=== PATIENT | male | born 1965 | race Caucasian/White ===

== ENCOUNTER 2017-04-25 23:19 | Inpatient (IN) | payer MEDICAID ==
[~2017-04-25] VITALS: Ht 180.3 cm; Wt 74.8 kg
[2017-04-26] VITALS (24 sets, daily range): BP systolic 121–165; BP diastolic 64–108; Ht 180.3 cm; Wt 74.8 kg
[2017-04-26 00:52] LABS: BASOPHILS 0.1 % (0-2); EOSINOPHILS 0 % (0-7); HEMATOCRIT 36.8 % (42.0-54.0); HEMOGLOBIN 12.8 g/dL (13.5-17.5); IMMATURE GRANULOCYTES 0.5 % (0-5); LYMPHOCYTES 4.5 % (15-50); MCH 31.7 pg (26.0-34.0); MCHC 34.8 g/dL (31.0-37.0); MCV 91.1 fL (80.0-100.0); MEAN PLATELET VOLUME 9.5 fL (7.4-10.4); MONOCYTES 7.2 % (2-11); NEUTROPHILS 87.7 % (40-80); PLATELET COUNT 75 10x3/uL (130-400); RBC 4.04 10x6/uL (4.20-6.10); RDW 12.6 % (11.5-14.5); WBC 16.8 10x3/uL (4.8-10.8)
[2017-04-26 00:55] LABS: APTT 22.7 SECONDS (22.8-39.4); INR 1.27 (0.85-1.17); PROTIME 15.8 SECONDS (11.6-15.0)
[2017-04-26 00:58] LABS: ALBUMIN 4.1 g/dL (3.4-5.0); ALKALINE PHOSPHATASE 98 U/L (46-116); ALT (SGPT) 91 U/L (10-68); BILIRUBIN - TOTAL 1.24 mg/dL (0.2-1.3); CALC OSMOLALITY 262 mosm/kg (275-300); CALCIUM 8.4 mg/dL (8.5-10.1); CARBON DIOXIDE 20.1 mmol/L (21.0-32.0); CHLORIDE - SERUM 89 mmol/L (98-107); CREATININE - SERUM 1.3 mg/dL (0.6-1.3); GLUCOSE 171 mg/dL (74-106); POTASSIUM - SERUM 4.7 mmol/L (3.5-5.1); PROTEIN - SERUM 8.5 g/dL (6.4-8.2); SODIUM 129 mmol/L (136-145); UREA NITROGEN 13 mg/dL (7-18); eGFR NON AFRICAN AMERICAN 61 mL/min (90-120)
[2017-04-26 01:17] LABS: PLATELET ESTIMATE DECREASED
[2017-04-26 01:21] LABS: CREATINE KINASE 495 UL (21-232); MAGNESIUM - SERUM 2.4 mg/dL (1.8-2.4)
[2017-04-26 01:22] LABS: CKMB 6.1 U/L (0.0-3.6)
[2017-04-26 01:37] LABS: APPEARANCE HAZY (CLEAR); BILIRUBIN NEGATIVE (NEGATIVE); COLOR YELLOW (YELLOW); GLUCOSE NEGATIVE (NEGATIVE); KETONE MODERATE mg/dL (NEGATIVE); LEUKOCYTE ESTERASE NEGATIVE (NEGATIVE); NITRITE NEGATIVE (NEGATIVE); PROTEIN 2+ mg/dL (NEGATIVE); SPECIFIC GRAVITY 1.025 (1.005-1.020); UROBILINOGEN NORMAL (NORMAL)
[2017-04-26 01:38] LABS: BACTERIA FEW /hpf (NONE SEEN); EPITHELIAL CELLS 0-5 /hpf (0-5); RED CELLS - URINE 0-5 /hpf (0-5); WHITE CELLS - URINE 0-5 /hpf (0-5)
[2017-04-26 01:39] LABS: SPERMATOZOA PRESENT /hpf (NONE SEEN)
--- NOTE | 2017-04-26 03:50 | NUR ---
REC'D TO ROOM 2301 VIA STRETCHER FROM ER. SEE PHARMACY TECHNICIAN INPATIENT HX AND ASSESSMENT. PT ANSWERING MOST QUESTIONS APPROP, SOME CONFUSION. ORIENTED TO UNIT, ICU MONITORS ON. ALARMS ON AND C/L IN REACH.
--- NOTE | 2017-04-26 04:50 | NUR ---
BELONGINGS FORM SIGNED BY PT - AGREES NO MONEY IN [place]ALLET - REFUSES TO SEND TO LOCK UP - BELONGINGS BAG IN ROOM.
[2017-04-26 05:18] LABS: UDS - AMPHET NEGATIVE QUAL (NEGATIVE); UDS - BARB NEGATIVE QUAL (NEGATIVE); UDS - BENZO NEGATIVE QUAL (NEGATIVE); UDS - COCAINE NEGATIVE QUAL (NEGATIVE); UDS - METH NEGATIVE QUAL (NEGATIVE); UDS - OPIATE NEGATIVE QUAL (NEGATIVE); UDS - PCP NEGATIVE QUAL (NEGATIVE); UDS - THC NEGATIVE QUAL (NEGATIVE)
--- NOTE | 2017-04-26 06:00 | NUR ---
PT C/O NAUSEA AND "SORENESS ALL OVER". NO CHANGE IN TEMP - DR. RAJAT STRATTON.
--- NOTE | 2017-04-26 07:20 | NUR ---
SHIFT REPORT RECEIVED. ASSESMENT COMPLETED. SEE ASSESSMENT CHART. PT AWAKE WITH EYES CLOSED. TEMP OF 104.3 ORALLY. NS INFUSING ON L FOREARM PERIPHERAL IV. L HAND S. LOCKED. NOT ABLE TO FLUSH. EHARD IN PLACE WITH YELLOW CONCENTRATED URINE.
[2017-04-26 09:30] LABS: BASOPHILS 0 % (0-2); EOSINOPHILS 0 % (0-7); HEMATOCRIT 37.8 % (42.0-54.0); HEMOGLOBIN 13.4 g/dL (13.5-17.5); IMMATURE GRANULOCYTES 0.3 % (0-5); LYMPHOCYTES 12.7 % (15-50); MCH 32.1 pg (26.0-34.0); MCHC 35.4 g/dL (31.0-37.0); MCV 90.4 fL (80.0-100.0); MEAN PLATELET VOLUME 9.6 fL (7.4-10.4); MONOCYTES 7.5 % (2-11); NEUTROPHILS 79.5 % (40-80); RBC 4.18 10x6/uL (4.20-6.10); RDW 12.4 % (11.5-14.5)
--- NOTE | 2017-04-26 09:52 | NUR ---
URINE COLLECTED PER ORDERS.
[2017-04-26 09:59] LABS: PLATELET COUNT 42 10x3/uL (130-400); WBC 9.3 10x3/uL (4.8-10.8)
[2017-04-26 10:03] LABS: CREATINE KINASE 1075 UL (21-232); TROPONIN-I 0.167 ng/mL (0.000-0.060)
--- NOTE | 2017-04-26 10:27 | NUR ---
DR. OGNZALEZ ORDERED LUMBAR PUNCTURE. CONSENT FORM SIGN. PROCEDURE EXPLAINED TO PATIENT INCLUDING RISK OF BLEEDING AND INFECTION. PT ABLE TO SIGN.
--- NOTE | 2017-04-26 11:49 | NUR ---
PT BACK IN ROOM BP 144/89 MAP 99. ECHO BEING PERFORMED AT THIS TIME.
[2017-04-26 13:52] LABS: CKMB 5.7 U/L (0.0-3.6)
[2017-04-26 14:04] LABS: CREATINE KINASE 1191 UL (21-232); TROPONIN-I 0.154 ng/mL (0.000-0.060)
[2017-04-26 14:05] LABS: GLUCOSE - CSF 100 MG/DL (40-75); PROTEIN - CSF 56 MG/DL (12-60)
--- NOTE | 2017-04-26 14:10 | NUR ---
BM LIQUID BROWN. STOOL SAMPLE COLLECTED AND DELIVERED TO LAB.
[2017-04-26 14:17] LABS: APPEARANCE - CSF COLORLESS; RBC - CSF 33 cmm (0-0)
--- NOTE | 2017-04-26 14:45 | NUR ---
22 GAUGE PERIPHERAL IV INSERTED ON RIGHT HAND. PT TOLERATED WELL. PROTONIX INFUSING AT 10ML/HR.
[2017-04-26 14:55] LABS: LYMPH - CSF 4 % (40-80); MONO - CSF 2 % (15-45); NEUT - CSF 94 % (0-6)
--- NOTE | 2017-04-26 15:35 | NUR ---
DR. GAVIRIA ASSESSED PT. PT PUPILS ARE UNEQUAL. VACOMYCIN INFUSING LEFT FOREARM.
--- NOTE | 2017-04-26 18:50 | NUR ---
PT PLACED ON BED FRANCO. BROWN LIQUID STOOL NOTED. PT COMPLAIN OF STOMACH CRAMPS. CLEAN TOP SHEET AND BLANKET PROVIDED.
--- NOTE | 2017-04-26 19:00 | NUR ---
SHIFT ASSESSMENT COMPLETE, SEE FLOWSHEET FOR DETIALS. VSS, PATIENT AWAKE AND ALERT. DENIES NEED AT THIS TIME. WILL MONITOR.
[2017-04-26 19:11] LABS: CKMB 5.9 U/L (0.0-3.6); CREATINE KINASE 1319 UL (21-232)
--- NOTE | 2017-04-26 20:10 | NUR ---
LAB AT BEDSIDE FOR BLOOD CULTURES.
--- NOTE | 2017-04-26 20:15 | NUR ---
PATIENT HAD INCONTINET BROWN LIQUID STOOL. CLEANED UP AND LINENS CHANGED.
--- NOTE | 2017-04-26 20:30 | NUR ---
XRAY AT BEDSIDE FOR ABDOMINAL AND PELVIS XRAY.
--- NOTE | 2017-04-26 21:00 | NUR ---
NIGHT MEDS GIVEN, DENIES NEED AT THIS TIME.
--- NOTE | 2017-04-26 23:00 | NUR ---
REASSESSMENT COMPLETE, NO ACUTE CHANGES. SEE FLOWSHEET FOR DETIALS. VSS.
[2017-04-27] VITALS (20 sets, daily range): BP systolic 121–153; BP diastolic 28–97
--- NOTE | 2017-04-27 00:30 | NUR ---
PATIENT GETTING OUT OF BED SAYING HE NEEDS TO PEE. TOLD HIM HE HAS A HEARD. HE DISCONNECTED ALL IV'S AND MONITORING EQUIPMENT. RETURNED TO BED AND SET BACK ON MONITOR.
--- NOTE | 2017-04-27 02:00 | NUR ---
PATIENT KEEPS ATTEMPTING TO GET UP AND DISCONNECTS IV TUBING AND MONITORING DEVICES. CONFUSED TO PLACE AND SITUATION AT THIS TIME.
[2017-04-27 04:19] LABS: BASOPHILS 0 % (0-2); EOSINOPHILS 0 % (0-7); HEMATOCRIT 36.1 % (42.0-54.0); IMMATURE GRANULOCYTES 0.3 % (0-5); LYMPHOCYTES 13.9 % (15-50); MCH 31.9 pg (26.0-34.0); MCV 88.7 fL (80.0-100.0); MEAN PLATELET VOLUME 9.5 fL (7.4-10.4); MONOCYTES 7.3 % (2-11); NEUTROPHILS 78.5 % (40-80); RBC 4.07 10x6/uL (4.20-6.10); RDW 12.3 % (11.5-14.5); WBC 9.3 10x3/uL (4.8-10.8)
[2017-04-27 04:22] LABS: PLATELET COUNT 33 10x3/uL (130-400)
[2017-04-27 04:43] LABS: ALBUMIN 3.4 g/dL (3.4-5.0); ALKALINE PHOSPHATASE 74 U/L (46-116); BILIRUBIN - TOTAL 1.32 mg/dL (0.2-1.3); CALC OSMOLALITY 262 mosm/kg (275-300); CALCIUM 7.3 mg/dL (8.5-10.1); CARBON DIOXIDE 23.9 mmol/L (21.0-32.0); CHLORIDE - SERUM 91 mmol/L (98-107); CREATININE - SERUM 0.9 mg/dL (0.6-1.3); GLUCOSE 165 mg/dL (74-106); PROTEIN - SERUM 7.4 g/dL (6.4-8.2); SODIUM 130 mmol/L (136-145); UREA NITROGEN 6 mg/dL (7-18)
[2017-04-27 04:44] LABS: ALT (SGPT) 205 U/L (10-68); POTASSIUM - SERUM 2.8 mmol/L (3.5-5.1); eGFR NON AFRICAN AMERICAN > 90 mL/min (90-120)
[2017-04-27 04:51] LABS: PLATELET ESTIMATE DECREASED
--- NOTE | 2017-04-27 05:15 | NUR ---
DR REYES SPOKE WITH CONCERNING PLATELETS AND LOW POTASSIUM. ELECTROLYTE PROTOCOL INITIATED.
--- NOTE | 2017-04-27 05:46 | NUR ---
PATIENT AT SIDE OF BED AND DISCONNECTING EQUIPMENT. ENTERED ROOM AND PUT EQUIPMENT BACK ON. ASKED WHY HE IS DISCONNECTING EVERYTHING AND PATIENT BECAME AGITATED SAYING "I HAVEN'T REMOVED ANYTHING AND YOU ARE KEEPING ME HOSTAGE" REORIENTED PATIENT TO SITUATION. PLACED BACK ON MONITOR.
[2017-04-27 06:13] LABS: RAPID PLASMA REAGIN Non Reactive (Non Reactive)
--- NOTE | 2017-04-27 06:30 | NUR ---
PATIENT CONTINUING TO PULL OFF IV'S, SAYS THEY ARE GETTING IN HIS WAY. STESSED THE IMPORTANCE OF THEM AND PLAVED BACK ON. STATES HE WILL LEAVE THEM ON.
--- NOTE | 2017-04-27 07:00 | NUR ---
REC'D CARE OF PT. CONFUSED.
--- NOTE | 2017-04-27 07:00 | NUR ---
REORIENTED TO PLACE,TIME,SITUATION.
--- NOTE | 2017-04-27 08:30 | NUR ---
WILL NOT STAY IN BED. PULLED PIV OUT X2. PULLS EKG LEADS OFF. PULLS BP CUFF OFF. CONFUSED. BILAT SOFT WRIST RESTRAINTS APPLIED FOR PT. SAFETY.
--- NOTE | 2017-04-27 08:45 | NUR ---
STARTED PIV AT LEFT FOREARM
--- NOTE | 2017-04-27 09:16 | NUR ---
TO MRI FOR MRI OF BRAIN.
[2017-04-27 10:12] LABS: HEPATITIS C ANTIBODY >11.0 (0.0-0.9)
--- NOTE | 2017-04-27 10:25 | NUR ---
BACK FROM MRI AND HOOKED UP TO CM. CONTINUES TO PULL AT EVERYTHING AND TRIE TO CLIMB OOB. RESTRAINT FOR HIS SAFETY.
--- NOTE | 2017-04-27 11:06 | NUR ---
UP TO BEDSIDE COMMODE.
--- NOTE | 2017-04-27 11:16 | NUR ---
OFF OF BEDSIDE COMMODE. SELF PERICARE PERFORMED AND BACK TO BED. RESTRAINED FOR HIS SAFETY. REFUSED TO WEAR SLACK LINE YARDER.
--- NOTE | 2017-04-27 11:29 | NUR ---
KCL WAS INFUSING THIS MORNING PER ELECTROLYTE PROTOCOL. HE PULLED ALL PIV'S OUT. BAG 1 OF 6 OF KCL HAD INFUSED PER NIGHT. HANGING REMAINDER OF KCL PER PROTOCOL.
--- NOTE | 2017-04-27 12:35 | NUR ---
PULLS HEARD OUT OF PENIS WHILE UNRESTAINED TO EAT LUNCH.
--- NOTE | 2017-04-27 12:35 | NUR ---
PULLS HEARD OUT OF PENIS.
--- NOTE | 2017-04-27 14:45 | NUR ---
TRIES TO CLIMB OOB. PULLS CONTINUALLY AT EVERYTHING. RESTRAINST ARE LOOSE ENOUGH FOR HIM TO DRINK H2O.
--- NOTE | 2017-04-27 17:39 | NUR ---
MORE AGITATED. TRYING TO CLIMB OOB. "LEAVING" ORDERS REC'D FOR HALDOL 5MG Q 6H. PRN.
--- NOTE | 2017-04-27 17:53 | NUR ---
REFUSED DINNER TRAY
--- NOTE | 2017-04-27 18:30 | NUR ---
CONTINUES TO BE AGITATED. TRYING TO CLIMB OOB. VERY AGRESSIVE. TRIES TO KICK ME.
--- NOTE | 2017-04-27 19:00 | NUR ---
DR REYES PAGED FOR PATIENT BEING AGGRESSIVE TOWARDS STAFF. ORDERS RECEIVED. RESTRAINTS PLACED BACK ON BILATERAL WRIST. PATIENT CONFUSED TO PLACE, TIME AND SITUATION. GILSON ON LINES AND REFUSING TO KEEP SAFE. WILL MONITOR.
[2017-04-27 19:08] LABS: ACID FAST SMEAR Negative (()); AFB SPECIMEN PROCESSING Not Indicated (())
--- NOTE | 2017-04-27 22:30 | NUR ---
PATIENT INCONTINENT OF STOOL AND URINE. LINENS CHANGED AND PATIENT CLEANED UP. 16 KITTITIAN HEARD CATHETER INSERTED WITH DAVID COLORED URINE RETURN.
[2017-04-28] VITALS (24 sets, daily range): BP systolic 100–157; BP diastolic 70–98
--- NOTE | 2017-04-28 01:30 | NUR ---
PATIENT INCONTINENT OF STOOL, CLEANED UP AND LINEN CHANGE COMPLETE.
--- NOTE | 2017-04-28 01:45 | NUR ---
PATIENT STILL VERY AGITATED, HALADOL IM GIVEN.
--- NOTE | 2017-04-28 03:30 | NUR ---
PATIENT INCONTINENT OF STOOL. CLEANED UP AND COMPLETE LINEN CHANGE.
[2017-04-28 06:20] LABS: BASOPHILS 0.2 % (0-2); EOSINOPHILS 0.6 % (0-7); HEMATOCRIT 37.6 % (42.0-54.0); HEMOGLOBIN 13.4 g/dL (13.5-17.5); IMMATURE GRANULOCYTES 0.3 % (0-5); LYMPHOCYTES 24.7 % (15-50); MCH 31.9 pg (26.0-34.0); MCHC 35.6 g/dL (31.0-37.0); MCV 89.5 fL (80.0-100.0); MEAN PLATELET VOLUME 9.9 fL (7.4-10.4); MONOCYTES 10.8 % (2-11); NEUTROPHILS 63.4 % (40-80); RDW 12.2 % (11.5-14.5)
[2017-04-28 06:24] LABS: WBC 6.6 10x3/uL (4.8-10.8)
[2017-04-28 06:27] LABS: PLATELET COUNT 27 10x3/uL (130-400)
--- NOTE | 2017-04-28 06:43 | NUR ---
PARTIAL LINEN CHANGE COMPLETE.
--- NOTE | 2017-04-28 07:00 | NUR ---
REC'D CARE OF PT., CONFUSED, REORIENTED. VSS.
[2017-04-28 07:06] LABS: ALBUMIN 3.3 g/dL (3.4-5.0); ALKALINE PHOSPHATASE 63 U/L (46-116); ALT (SGPT) 192 U/L (10-68); C-REACTIVE PROTEIN 0.6 mg/dL (0.0-0.9); CALC OSMOLALITY 270 mosm/kg (275-300); CALCIUM 8.3 mg/dL (8.5-10.1); CHLORIDE - SERUM 98 mmol/L (98-107); CREATININE - SERUM 0.8 mg/dL (0.6-1.3); GLUCOSE 118 mg/dL (74-106); PROTEIN - SERUM 7.3 g/dL (6.4-8.2); SODIUM 136 mmol/L (136-145); THYROID STIMULATING HORMONE 1.39 uIU/mL (0.36-3.74); TROPONIN-I 0.019 ng/mL (0.000-0.060); UREA NITROGEN 7 mg/dL (7-18); eGFR NON AFRICAN AMERICAN > 90 mL/min (90-120)
[2017-04-28 07:12] LABS: CARBON DIOXIDE 32.2 mmol/L (21.0-32.0); CREATINE KINASE 1333 UL (21-232); POTASSIUM - SERUM 2.6 mmol/L (3.5-5.1)
[2017-04-28 07:13] LABS: CKMB 3.6 U/L (0.0-3.6)
--- NOTE | 2017-04-28 07:45 | NUR ---
KCL INFUSING PER PROTOCOL.
--- NOTE | 2017-04-28 08:00 | NUR ---
REQUESTED H2O. OBLIGED.
--- NOTE | 2017-04-28 08:25 | NUR ---
ERRATIC BEHAVIOR CONTINUES. AGITATED. WAITING ON RESULTS FOR MENEGITIS TEST. CONTINUE TO GIVE HALDOL AND ATIVAN PRESCRIBED.
--- NOTE | 2017-04-28 09:20 | NUR ---
DR. REYES AT BEDSIDE. PT. WAKES UP AND ANSWERS QUESTIONS APPROPRIATLY. BREAKFAST TRAY SERVED. NO AGITATION NOW.
--- NOTE | 2017-04-28 10:28 | NUR ---
CONTIUES TO BE AGITATED.
--- NOTE | 2017-04-28 10:30 | NUR ---
REQUESTED H2O. OBLIGED.
--- NOTE | 2017-04-28 11:05 | NUR ---
AGITATED. ATIVAN GIVEN PER ORDERS.
--- NOTE | 2017-04-28 11:46 | NUR ---
AGITATED, TRYING TO CLIMB OOB.
--- NOTE | 2017-04-28 13:19 | NUR ---
AGITATED. ATIVAN GIVEN.
--- NOTE | 2017-04-28 13:30 | NUR ---
REQUESTED H2O. OBLIGED.
--- NOTE | 2017-04-28 13:56 | NUR ---
HALDOL GIVEN FOR AGITATION.
--- NOTE | 2017-04-28 15:00 | NUR ---
REFQUESTED H2O. OBLIGED.
--- NOTE | 2017-04-28 16:31 | NUR ---
AGITATED. TRYING TO CLIMB OOB.
--- NOTE | 2017-04-28 17:22 | NUR ---
REMAINS AGITATED. ATIVAN GIVEN.
--- NOTE | 2017-04-28 18:10 | NUR ---
NO VISITORS.EATING DINNER. DENIES OTHER NEEDS.
--- NOTE | 2017-04-28 18:12 | NUR ---
REQUESTED H2O.OBLIGED.
--- NOTE | 2017-04-28 19:45 | NUR ---
LARGE LOOSE BROWN BM. COMPLETE BATH AND LINEN CHANGE DONE. BARRIER CREAM APPLIED TO REDDENED BUTTOCKS.
--- NOTE | 2017-04-28 20:40 | NUR ---
PT AGITATED - YELLING, ATTEMPT TO CALM, "WANT OUT OF HERE". ADMIN PRN HALDOL PER MD ORDERS
[2017-04-28 21:07] LABS: HSV 1 DNA (PCR) Negative (Negative); HSV 2 DNA (PCR) Negative (Negative)
--- NOTE | 2017-04-28 22:29 | NUR ---
REASSESSMENT PER FLOWSHEET, VSS. NO SIGN OF DISTRESS AFTER PRN ATIVAN. ALARMS ON. C/L IN REACH.
[2017-04-28 22:54] LABS: VANCOMYCIN - TROUGH 16.5 ug/mL (10.0-20.0)
[2017-04-28 22:55] LABS: POTASSIUM - SERUM 3.2 mmol/L (3.5-5.1)
--- NOTE | 2017-04-28 23:00 | NUR ---
BEGIN KCL RIDER X 4 PER PROTOCOL. PT WATCHING TV, CALM AT THIS TIME. RESTRAINTS D/C'D PER PROTOCOL, PT NOT PULLING AT LINES AND VERBALIZES UNDERSTANDING.
[2017-04-29] VITALS (23 sets, daily range): BP systolic 95–172; BP diastolic 61–115
--- NOTE | 2017-04-29 02:45 | NUR ---
UP TO BSC, 300ML LIQUID BROWN STOOL - AJJA-CARE DONE AND BACK TO BED.
--- NOTE | 2017-04-29 03:44 | NUR ---
REASSESSMENT PER FLOWSHEET. PT RESTING QUIETLY AT THIS TIME. AWAKENS EASILY, VSS. C/L IN REACH.
--- NOTE | 2017-04-29 04:29 | NUR ---
PT AGITATED, YELLING OUT TO SEE HIS DOCTOR NOW. ATTEMPT TO CALM. ADMIN PRN HALDOL. WILL CONT CLOSE MONITORING.
--- NOTE | 2017-04-29 05:00 | NUR ---
RESTING QUIETLY, NO SIGN OF DISTRESS.
[2017-04-29 05:09] LABS: BASOPHILS 0.2 % (0-2); HEMATOCRIT 35.8 % (42.0-54.0); HEMOGLOBIN 12.7 g/dL (13.5-17.5); IMMATURE GRANULOCYTES 0.2 % (0-5); MCHC 35.5 g/dL (31.0-37.0); MCV 90.2 fL (80.0-100.0); MONOCYTES 12.4 % (2-11); NEUTROPHILS 53.2 % (40-80); RBC 3.97 10x6/uL (4.20-6.10); RDW 12.5 % (11.5-14.5); WBC 5.2 10x3/uL (4.8-10.8)
[2017-04-29 05:10] LABS: PLATELET COUNT 45 10x3/uL (130-400)
[2017-04-29 05:12] LABS: ALKALINE PHOSPHATASE 144 U/L (46-116); CHLORIDE - SERUM 100 mmol/L (98-107); CREATININE - SERUM 0.7 mg/dL (0.6-1.3); GLUCOSE 135 mg/dL (74-106); POTASSIUM - SERUM 3.5 mmol/L (3.5-5.1); PROTEIN - SERUM 6.4 g/dL (6.4-8.2); SODIUM 138 mmol/L (136-145); eGFR NON AFRICAN AMERICAN > 90 mL/min (90-120)
[2017-04-29 05:20] LABS: ALT (SGPT) 133 U/L (10-68); CALC OSMOLALITY 276 mosm/kg (275-300); UREA NITROGEN 10 mg/dL (7-18)
--- NOTE | 2017-04-29 05:37 | NUR ---
AM LAB RESULTED, PLT IMPROVING. KCL RIDERS STILL INFUSING - K+ ORDERED FOR 0900 PER ELECTROLYTE PROTOCOL.
--- NOTE | 2017-04-29 07:20 | NUR ---
PT SLEEPING. WAKES UP TO VOICE. WANTS TO HAVE HEARD REMOVED. EXPLAINED THAT HE SHOULD NOT PULL ON IT BECAUSE IT WILL CAUSE INJURY TO HIS URETHRA. L- FOREARM IV WITH NS KVO AND PROTONIX AT 10ML/HR. 02SAT 100% ON ROOM AIR. LUNGS ARE CLEAR. BS SOUNDS ACTIVE. S1S2 WITH SYNUS RHYTHM. PT ABLE TO STATE NAME AND DATE OF . CONFUSED ON THE DATE. STATED THAT IT WAS JULY. PUPILS UNEVEN. SEE ASSESSMENT CHART FOR REST OF ASSESSMENT.
--- NOTE | 2017-04-29 08:30 | NUR ---
PT ASKING WHEN HIS DOCTOR WILL BE BY TO SEE HIM.
--- NOTE | 2017-04-29 10:03 | NUR ---
Nutrition follow-up: Diet now ADA consistent CHO; PO intake ~75% of meals Labs reviewed +BM, liquids Wt: 165# RDN following.
--- NOTE | 2017-04-29 11:13 | NUR ---
SPOKE WITH DR. REYES. HE SAID HEARD CAN BE DISCONTINUED.
--- NOTE | 2017-04-29 11:30 | NUR ---
FÉLIX DC'D PER DR. REYES'S ORDERS. 2050 ML CLEAR, YELLOW URINE. CATHETER INTACT.
--- NOTE | 2017-04-29 11:57 | NUR ---
CALLED [facility] AND NOTIFIED THEM OF CONSULT FOR DR. HECTOR.
--- NOTE | 2017-04-29 14:10 | NUR ---
* Is the patient Alert and Oriented? Yes 0 * ADLs Independent 0 * Additional services required to return to the preadmission environment? Yes 0 * Has this patient been hospitalized within the prior 30 days at any hospital? No 0 Patient Name: MARCY BLANC Admission Status: ER Accout number: [id number] Admission Date: 04-26-2017 : 1965 Admission Diagnosis: Attending: MIRYAM Current LOS: 3 Primary Insurance: [facility] [employer] Discharge Planning Comments: CM met with patient in an attempt to assess dc plans/needs. Patient is cooperative, alert & oriented x 3. He is unable to answer most questions. He states his primary care doctor is "Paul", his pharmacy is "the one across [facility]". He states he lives alone at [address] different addresses but unable to provide an address. He states he does not have any family. When asked if he had someone we could contact in an emergency, he stated "yeah but I can't remember his name", then stated, "his Tajik name is Feliberto Milligan, but I don't remember his other name". He states he plans to "go home with Bright" at discharge, but can not give his last name, address or phone number. CM will follow and assist as needed. Unishear Operator: Bia Cueva
--- NOTE | 2017-04-29 16:14 | NUR ---
PT WATCHING TV. HOB LOWERED. CALL LIGHT IN REACH. ICE WATER PROVIDED. TUBING CHANGED.
--- NOTE | 2017-04-29 18:41 | NUR ---
SPOKE WITH DR. REYES ABOUT BP BEING 169/109. HE ORDERED METOPROLOL 50 MG PO TWICE DAILY.
--- NOTE | 2017-04-29 19:00 | NUR ---
Assessment complete. See flowsheet. Pt awake and getting OOB with urine soaked linens and clothes. Pants, gown and socks removed. Pt provided with wipes for bath. Gown and new linens provided with linen changes completed. Pt room filtly and smells of urine. Floor swept and mopped. Pt helped to bed and educated on bedrest. Pt confused and oriented to person only at this time but seems fairly cooperative. Pupils size 3 bilaterally ERRLA. Pt moving all extremities with 4/5 strenght and appears steady during standing. Urinal emptied of 300cc clear/yellow urine. O2 RA. Respirations even and unlabored. Pt self-positioned to back with HOB elevated to 20 degrees. Right A/C PIV site advanced and showing no s/s infection or infiltration with dressing removed and new dressing site secured. NS infusing @ 10cc/hr KVO rate with Protonix gtt @ 8mg/hr (10cc/hr). Lung sounds clear to all mcmahan. HR ST 120bpm with exertion. S1S2 auscultated. All peripheral pulses +2 with capillary refill <3 seconds. BS +. Pt provided with water on bedside table. Call light and bedside table within reach. NO s/s pain. CPOC.
--- NOTE | 2017-04-29 21:00 | NUR ---
Pt awake and provided with applejuice and PM medications per order. See MAR. Pt conversive now and much calmer now. Urinal emptied of 250cc clear/yellow urine. Call light and bedside table remain within reach. CPOC.
--- NOTE | 2017-04-29 23:00 | NUR ---
Reassessment complete. See flowsheet. Pt self-positioning in room for comfort and watching television. VSS. Urinal emptied of 300cc clear/yellow urine. Pt oriented to person and place now. O2 RA. Lung sounds CTA. HR SR. PIV site CDI with NO IVF changes to note from previous assessment. BS+. Pain denied. Call light and bedside table remain within reach. NO other changes to note from previous assessment. CPOC.
[2017-04-30] VITALS (22 sets, daily range): BP systolic 111–175; BP diastolic 40–111
--- NOTE | 2017-04-30 01:00 | NUR ---
IV site bent and nonfunctional. IV removed. New 20g PIV site replaced x1 stick to right A/C and IVF moved to site. Pt voiding 100cc to urinal.
--- NOTE | 2017-04-30 03:00 | NUR ---
Reassessment complete. See flowsheet. Pt OOB and voiding 550cc clear/yellow urine. Pt instructed to stay in bed. NO neuro changes to note. Partial linen and gown changes completed. Pt back to bed to self-position for comfort. PIV site remains CDI with NO IVF changes to note. Pt denies further needs at this time. Call light and bedside table remain within reach. CPOC.
--- NOTE | 2017-04-30 04:46 | NUR ---
Pt continues to remove BP cuff and EKG leads and agitated with equipment. Ativan 2mg IVP administered. CPOC.
--- NOTE | 2017-04-30 05:00 | NUR ---
Pt OOB with IV removed and all monitoring equipment off. Pt to chair. AM blood draw in progress.
--- NOTE | 2017-04-30 05:25 | NUR ---
Gown and linen changes complete. New IV started to right wrist. Pt to bedside chair. Belongings within reach.
--- NOTE | 2017-04-30 05:52 | NUR ---
Pt removing all equipment. Pt back to bed. Equipment replaced. Bed alarm on
[2017-04-30 06:21] LABS: ALBUMIN 3.7 g/dL (3.4-5.0); ALKALINE PHOSPHATASE 93 U/L (46-116); ALT (SGPT) 144 U/L (10-68); BILIRUBIN - TOTAL 0.49 mg/dL (0.2-1.3); CALC OSMOLALITY 278 mosm/kg (275-300); CALCIUM 8.7 mg/dL (8.5-10.1); CARBON DIOXIDE 28.4 mmol/L (21.0-32.0); CHLORIDE - SERUM 100 mmol/L (98-107); CREATININE - SERUM 0.8 mg/dL (0.6-1.3); GLUCOSE 118 mg/dL (74-106); SODIUM 140 mmol/L (136-145); UREA NITROGEN 10 mg/dL (7-18); eGFR NON AFRICAN AMERICAN > 90 mL/min (90-120)
[2017-04-30 06:35] LABS: C-REACTIVE PROTEIN < 0.2 mg/dL (0.0-0.9); CKMB 2.1 U/L (0.0-3.6); CREATINE KINASE 925 UL (21-232); POTASSIUM - SERUM 3.4 mmol/L (3.5-5.1)
[2017-04-30 06:40] LABS: BASOPHILS 0.1 % (0-2); EOSINOPHILS 5.2 % (0-7); HEMATOCRIT 41.1 % (42.0-54.0); HEMOGLOBIN 14.4 g/dL (13.5-17.5); IMMATURE GRANULOCYTES 0.3 % (0-5); LYMPHOCYTES 26.8 % (15-50); MCH 32.4 pg (26.0-34.0); MEAN PLATELET VOLUME 9.8 fL (7.4-10.4); MONOCYTES 13.1 % (2-11); NEUTROPHILS 54.5 % (40-80); RBC 4.45 10x6/uL (4.20-6.10); RDW 12.7 % (11.5-14.5)
[2017-04-30 06:48] LABS: MCV 92.4 fL (80.0-100.0); PLATELET COUNT 56 10x3/uL (130-400); WBC 6.9 10x3/uL (4.8-10.8)
--- NOTE | 2017-04-30 07:18 | NUR ---
PT OUT OF BED TRYING TO GO TO THE BATHROOM. SEEMED CONFUSED. SLOW TO FOLLOW COMMANDS. URINATING ON SELF. HANDED HIM HIS URINAL. INSTRUCTED TO GET BACK IN BED. EXPLAINED THAT HE NEEDS TO STAY IN BED TO PREVENT A FALL. GOT BACK IN BED. BED ALARM TURNED BACK ON. CALL LIGHT IN REACH.
--- NOTE | 2017-04-30 08:41 | NUR ---
PT UP BESIDE BED. URINATED ON SELF. TRYING TO GET OUT. CALMED HIM DOWN. CHANGED HIS GOWN. PROVIDED DRY BLANKET AND GAVE PARTIAL BATH.
--- NOTE | 2017-04-30 08:59 | NUR ---
STANDING BESIDE BED. INSTRUCTED TO GET BACK IN BED. EXPLAINED THAT HE NEEDS TO STAY IN BED TO PREVENT A FALL.
--- NOTE | 2017-04-30 09:59 | NUR ---
PT SLEEPING ON LEFT SIDE.
--- NOTE | 2017-04-30 12:20 | NUR ---
LUNCH TRAY SET UP. PT WANTING TO GET OUT OF BED. INSTRUCTED TO STAY IN BED TO PREVENT A FALL.
--- NOTE | 2017-04-30 13:26 | NUR ---
PT KEEPS WANTING TO GET OUT OF BED. URINATING ON HIMSELF. HALDOL 10MG IM GIVEN PER ORDERS. DRY GOWN PROVIDED.
--- NOTE | 2017-04-30 14:20 | NUR ---
PT TRYING TO GET OUT OF BED. COMPLETELY SOCKED FROM URINATING ON SELF. ASSISTED TO CHAIR. USED URINAL 100ML YELLOW URINE. COMPLETE BED LINEN CHANGE. BATH GIVEN. PT ABLE TO DO MOST OF IT. ASSISTED HIM BACK IN BED. RESTING QUIETLY.
--- NOTE | 2017-04-30 15:25 | NUR ---
PT SLEEPING ON RIGHT SIDE.
--- NOTE | 2017-04-30 17:50 | NUR ---
PT VOIDED ON HIMSELF IN BED. CLEAN GOWN AND PARTIAL BED CHANGED. ASSISTED PT TO BEDSIDE. HE THOUGHT HE NEEDED TO HAVE A BM. DID NOT HAVE A BM. ASSISTED BACK INTO BED.
--- NOTE | 2017-04-30 19:00 | NUR ---
Assessment complete. See flowsheet.
--- NOTE | 2017-04-30 21:00 | NUR ---
Pt voiding to urinal. VSS. PM meds administered with fresh ice water. See MAR. Pt denies further needs at this time. Linens clean/dry. Call light and bedside table remain within pt reach. CPOC.
--- NOTE | 2017-04-30 23:00 | NUR ---
Reassessment complete. See flowsheet. NO changes to note from previous assessment.
[2017-05-01] VITALS (16 sets, daily range): BP systolic 121–163; BP diastolic 57–106
--- NOTE | 2017-05-01 00:19 | NUR ---
BED BATH completed with gown and linen changes. Floor mopped. Urinal emptied of 400cc red-tinged urine. Pt sitting to bedside chair with table within reach. Vancomycin infusing to PIV site CDI no s/s infection or infiltration.
--- NOTE | 2017-05-01 01:00 | NUR ---
Pt sitting in bedside chair watching television. VSS
--- NOTE | 2017-05-01 01:40 | NUR ---
Pt back to bed with all equipment secure. Call light and bedside table within reach. Urinal emptied.
--- NOTE | 2017-05-01 03:00 | NUR ---
Assessment complete. See flowsheet. Pt resting quietly, self-positioned to left side with VSS and awakens to verbal stimulation easily with no changes to note. Pt denies pain and provided with fresh ice water per request. Call light and bedside table remain within reach. PIV site saline locked CDI no s/s infection.
--- NOTE | 2017-05-01 05:00 | NUR ---
Pt resting with VSS.
[2017-05-01 06:39] LABS: BASOPHILS 0.3 % (0-2); EOSINOPHILS 3.9 % (0-7); HEMOGLOBIN 14.4 g/dL (13.5-17.5); IMMATURE GRANULOCYTES 0.8 % (0-5); LYMPHOCYTES 33.1 % (15-50); MCH 31.6 pg (26.0-34.0); MCHC 34.3 g/dL (31.0-37.0); MCV 92.3 fL (80.0-100.0); MEAN PLATELET VOLUME 12.2 fL (7.4-10.4); MONOCYTES 12.6 % (2-11); NEUTROPHILS 49.3 % (40-80); RBC 4.55 10x6/uL (4.20-6.10); RDW 13.2 % (11.5-14.5); WBC 6.5 10x3/uL (4.8-10.8)
[2017-05-01 06:48] LABS: ALBUMIN 3.8 g/dL (3.4-5.0); ALKALINE PHOSPHATASE 112 U/L (46-116); ALT (SGPT) 139 U/L (10-68); BILIRUBIN - TOTAL 0.45 mg/dL (0.2-1.3); C-REACTIVE PROTEIN < 0.2 mg/dL (0.0-0.9); CALC OSMOLALITY 288 mosm/kg (275-300); CARBON DIOXIDE 26.6 mmol/L (21.0-32.0); CHLORIDE - SERUM 105 mmol/L (98-107); CREATININE - SERUM 0.8 mg/dL (0.6-1.3); GLUCOSE 108 mg/dL (74-106); POTASSIUM - SERUM 3.8 mmol/L (3.5-5.1); PROTEIN - SERUM 8.3 g/dL (6.4-8.2); SODIUM 145 mmol/L (136-145); UREA NITROGEN 11 mg/dL (7-18); eGFR NON AFRICAN AMERICAN > 90 mL/min (90-120)
[2017-05-01 07:00] LABS: PLATELET COUNT 66 10x3/uL (130-400)
--- NOTE | 2017-05-01 07:00 | NUR ---
REC'D REPORT AND RESUMED CARE, AWAKE AND CONFUSED, UP WALKING AROUNED ROOM, BTB, ASSESSMENT COMPLETED PER FLOWSHEET, RECONNECTED TO MONITORS, VSS, DENIES PAIN AT THIS TIME, URINAL IN USE, WILL CONTINUE WITH POC
--- NOTE | 2017-05-01 07:45 | NUR ---
BREAKFAST TRAY TO BEDSIDE, INDEPENDENT WITH SET UP AND EATING
--- NOTE | 2017-05-01 09:00 | NUR ---
NO VISITORS AT THIS TIME, OFF OF MONITOR, LEADS TAKEN OFF, STATES HE HAS TO GET UP AND GO ACROSS ROOM TO PUT SOME THINGS IN HIS PERSONAL BELONGING BAG, AMBULATED WITHOU T ASSIST,
--- NOTE | 2017-05-01 11:00 | NUR ---
SLEEPING WITH NO SIGNS OF DISTRESS, VSS, DENIES PAIN, NO NEEDS AT THIS TIME
--- NOTE | 2017-05-01 12:05 | NUR ---
LUNCH TRAY TO BEDSIDE, INDEPENDENT WITH SET UP AND EATING
--- NOTE | 2017-05-01 12:50 | NUR ---
SLEEPING WITH NO SIGNS OF DISTRESS, VSS, WILL CONTINUE WITH POC
--- NOTE | 2017-05-01 13:54 | CN ---
PATIENT NAME:MARCY BLANC MEDICAL RECORD: [id number] : 63 LOCATION:[id number] ADMIT DATE: 04/26/17 ACCOUNT: [id number] CONSULTING PHYSICIAN: SIRENA MENDOZA MD REFERRING PHYSICIAN: KOURTNEY EARL DO DATE OF CONSULTATION: 05/01/2017 ADMITTING DIAGNOSES: 1. Endocarditis. 2. Febrile illness. HISTORY OF PRESENT ILLNESS: This is a gentleman who presents with febrile illness. Echocardiogram was done, it is compatible with endocarditis, anterior leaflet, mitral valve. PHYSICAL EXAMINATION: GENERAL APPEARANCE: Well-nourished, well-developed, appears stated age. Level of distress, comfortable. PSYCHIATRIC: Mental status, alert, normal affect. Orientation, oriented to time, place and person. EYES: Lids and conjunctiva, noninjected. No discharge, no pallor. ENT: Lips, teeth, gums, normal dentition. Oropharynx, no cyanosis, no pallor. NECK: Carotid arteries, bilateral normal upstroke, no bruits, no thrills. JUGULAR VEINS: No jugular venous pressure or distention. CERVICAL LYMPH NODES: Nontender, nonenlarged. THYROID: Not enlarged. Nontender. No nodules. LUNGS: Respiratory effort, unlabored. CHEST: Normal curvature. No thoracic deformity. No chest wall tenderness. Percussion, resonant. Auscultation, clear. No wheezes, no rales, no rhonchi. CARDIOVASCULAR: Precordial exam, nondisplaced. No heaves or pericardial thrills. Rate and rhythm, regular. Heart sounds, normal S1, normal S2. No S3, no gallop, no rub. Systolic murmur, not heard. Diastolic murmur, not heard. EXTREMITIES: No cyanosis, no edema. Peripheral pulses, full and equal in all extremities, except as noted. No bruits appreciated. ABDOMEN: Soft, nondistended. Normal aorta. No bruit. Nontender. No masses. Liver, nontender, no hepatomegaly. Spleen, nontender, no splenomegaly. MUSCULOSKELETAL: No joint tenderness. No joint swelling. No erythema. NEUROLOGICAL: Normal gait, normal strength, normal tone. SKIN: Warm and dry. 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 TRANSINT:[id number] Voice Confirmation ID: [id number] DOCUMENT ID: [id number] SIRENA MENDOZA MD at 1354 CC: [id number] DICTATION DATE: 05/01/17 1035 MULTIPLE TUBE WINDING MACHINE OPERATOR: 05/01/17 [address] [facility] [address] [id number]
--- NOTE | 2017-05-01 13:54 | EC ---
PATIENT:MARCY BLANC DATE OF SERVICE: 04/26/17 SEX: M MEDICAL RECORD: [id number] DATE OF : 63 LOCATION:[facility] AGE OF PATIENT: 52 ADMISSION DATE: 04/26/17 REFERRING PHYSICIAN: INTERPRETING PHYSICIAN: SIRENA GLOVER MD ECHOCARDIOGRAM REPORT ECHO CHARGES 4 ECHO COMPLETE CLINICAL DIAGNOSIS: FEVER/ ASSESS FOR VEGATATION ECHOCARDIOGRAPHIC MEASUREMENTS (adult normal given) AC root (d.<3.7cm) 25 cm LV Septum d (<1.2 cm> 1.3 cm Valve Excursion 1.6 cm LV Septum (systole) 1.7 cm Left Atria (s.<4.0cm> 3.8 cm LVPW d(<1.2cm) 1.6 cm RV (d.<2.3cm) 3.1 cm LVPW (sytole) 1.7 cm LV diastole(<5.6CM) 3.6 cm MV E-F(>70mm/sec) cm LV systole 2.1 cm LVOT Diameter 2.0 cm MV exc.(>10mm) 1.7 cm Est.ejection fraction (50-75%) % Pericardial Effusion N DOPPLER: LVIT cm/sec A 117 cm/sec E 74.0 cm/sec LA cm/sec RVSP 18 mmHg LVOT 99 cm/sec AOP1/2T m/s Asc. Ao 125 cm/sec RVOT cm/sec RA cm/sec PA cm/sec AV Gradient Peak 6.24 mmHg AV Mean 3.99 mmHg AV Area 1.7 cm MV Gradient Peak 4.45 mmHg MV Mean 1.78 mmHg MV Area cm COMMENTS: Smart Grid Engineer: Bettina ULLOA Chairman Ceo: 1 Dr. Glover TAPE# PACS DATE OF SERVICE: 04/26/2017 FINDINGS: 1. Left ventricle chamber size is within normal limits. Left ventricular systolic function is normal. Overall ejection fraction estimated at 55%. 2. Left atrium, right atrium, and right ventricle chamber sizes are within normal limits. 3. Valvular structures: The mitral valve does have an echogenic structure that very well might be vegetative endocarditis. It is on the anterior leaflet of the mitral valve. The remaining valvular structures have normal structure and ECHOCARDIOGRAM REPORT [id number] MARCY BLANC motion. 4. Doppler interrogation only reveals trace tricuspid regurgitation, no other valvular insufficiency or stenosis. OVERALL IMPRESSION: Possible endocarditis, anterior leaflet mitral valve. The remaining valvular structures have normal structure and motion. Otherwise, echo is normal. TRANSINT:[id number] Voice Confirmation ID: [id number] DOCUMENT ID: [id number] SIRENA GLOVER MD at 1354 CC: [id number] DICTATION DATE: 04/26/17 1408 MANAGER TRANSPORT: 04/26/[id number] [facility] [id number] [place] [address]
--- NOTE | 2017-05-01 15:00 | NUR ---
OOB IN CHAIR WATCHING TV, NO SIGNS OF DISTRESS, VSS, DENIES PAIN, ASSESSMENT COMPLETE, CALL LIGHT IN REACH, NO NEEDS AT THIS TIME
--- NOTE | 2017-05-01 15:44 | NUR ---
SPOKE WITH DORI, PHARMACIST, "HE HAS NOT FILLED ANY PRESCRIPTIONS HERE SINCE LAST AUGUST." ASKED HER IF PT HAS FILLED ANY RX AT ANY OTHER [facility] THAT SHE COULD SEE, "NO HE HAS NOT FILLED ANY RX AT ANY OTHER [facility]."
--- NOTE | 2017-05-01 17:05 | NUR ---
DINNER TRAY TO BEDSIDE, INDEPENDENT WITH SET UP AND EATING, WANTS IV DISCONNECTED FOR EATING, DONE PER REQUEST
--- NOTE | 2017-05-01 18:57 | NUR ---
NO VISITORS AT THIS TIME, NO NEEDS AT THIS TIME, IV RECONNECTED FOR IVPB, ROCEPHIN 2 GM INITIATED
--- NOTE | 2017-05-01 19:00 | NUR ---
REPORT RECEIVED AND ASSESSMENT COMPLETED. PT WAS NOT WEARING TELEMETRY OR B/P CUFF. REPLACED AT THIS TIME, AND DISCUSSED THE IMPORTANCE OF THE MONITORING DEVICES TO THE PATIENT. SEE ASSESSMENT FLOWSHEET FOR FULL DETAILS. WILL MONITOR THROUGHOUT SHIFT
--- NOTE | 2017-05-01 21:00 | NUR ---
2100 MEDS GIVEN. PT ASSISTED TO BSC. PT HAS AGAIN REMOVED MONITORING DEVICES. REPLACED. VSS WILL MONITOR
--- NOTE | 2017-05-01 23:00 | NUR ---
REASSESSMENT COMPLETED SEE FLOWSHEET FOR FULL DETAILS. VSS. WILL MONITOR
[2017-05-02] VITALS (14 sets, daily range): BP systolic 93–147; BP diastolic 51–102
--- NOTE | 2017-05-02 01:00 | NUR ---
PT IV INFILTRATED. INFUSION IMMEDIATELY STOPPED, AND ATTEMPTED TO REPLACE. UNABLE AFTER TWO STICKS. IV ATTEMPTED BY SEKOU GARCIA, AND NIKOLE. A TOTAL OF 9 ATTEMPTS IV NOW IN LEFT CHEST. WILL MONITOR SITE CLOSELY.
--- NOTE | 2017-05-02 03:00 | NUR ---
REASSESSMENT COMPLETED. SEE FLOWSHEET FOR FULL DETAILS. PT CONTINUES TO REMOVE CUFF AN LEADS. HAVE REPLACED FREQUENTLY. NO OTHER CHANGES AT THIS TIME, VDD, WILL CONTINUE TO MONITOR
[2017-05-02 04:48] LABS: BASOPHILS 0.4 % (0-2); HEMATOCRIT 37.6 % (42.0-54.0); HEMOGLOBIN 12.9 g/dL (13.5-17.5); IMMATURE GRANULOCYTES 0.4 % (0-5); LYMPHOCYTES 29.1 % (15-50); MCH 31.9 pg (26.0-34.0); MCHC 34.3 g/dL (31.0-37.0); MCV 92.8 fL (80.0-100.0); MEAN PLATELET VOLUME 9.6 fL (7.4-10.4); MONOCYTES 18.1 % (2-11); RBC 4.05 10x6/uL (4.20-6.10); RDW 13.5 % (11.5-14.5); WBC 7.2 10x3/uL (4.8-10.8)
[2017-05-02 04:49] LABS: PLATELET COUNT 86 10x3/uL (130-400)
[2017-05-02 04:59] LABS: ALBUMIN 3.2 g/dL (3.4-5.0); ALKALINE PHOSPHATASE 106 U/L (46-116); ALT (SGPT) 112 U/L (10-68); BILIRUBIN - TOTAL 0.34 mg/dL (0.2-1.3); CALC OSMOLALITY 277 mosm/kg (275-300); CALCIUM 8.7 mg/dL (8.5-10.1); CARBON DIOXIDE 26.8 mmol/L (21.0-32.0); CHLORIDE - SERUM 103 mmol/L (98-107); CREATININE - SERUM 0.8 mg/dL (0.6-1.3); GLUCOSE 112 mg/dL (74-106); POTASSIUM - SERUM 3.9 mmol/L (3.5-5.1); PROTEIN - SERUM 7.3 g/dL (6.4-8.2); SODIUM 138 mmol/L (136-145); UREA NITROGEN 14 mg/dL (7-18); eGFR NON AFRICAN AMERICAN > 90 mL/min (90-120)
--- NOTE | 2017-05-02 05:00 | NUR ---
I&O COLLECTED. PT REQUESTING SMALLER GOWN, AND STATES HE NEEDS A NEW SHIRT BECAUSE HIS WAS CUT OFF ENROUTE TO FACILITY. NO OTHER CHANGES IN STATUS AT THIS TIME VSS WILL CONTINUE TO MONITOR
--- NOTE | 2017-05-02 09:37 | NUR ---
Nutrition follow-up: Diet: ADA consistent CHO PO intake 100% of most meals Labs reviewed Wt: 165# RDN following.
--- NOTE | 2017-05-02 11:04 | NUR ---
IV PUMP ALARMING, PATIENT HAS DISCONNECTED HIMSELF FROM IV, FLUIDS RUNNING ON FLOOR, EDUCATED PATIENT NOT TO TOUCH IV'S, AND WHEN NEEDING TO GET UP OUT OF BED TO CALL FOR NURSE FOR HELP, CALL LIGHT IN REACH, HE VERBALIZED UNDERSTANDING, NO OTHER ACUTE CHANGE FROM PREVIOUS ASSESSMENT
[2017-05-02 12:17] LABS: BARTONELLA - HENSELAE IGG Negative titer (Neg:<1:320); BARTONELLA - HENSELAE IGM Negative titer (Neg:<1:100); BARTONELLA - QUINTANA IGG Negative titer (Neg:<1:320); BARTONELLA - QUINTANA IGM Negative titer (Neg:<1:100)
--- NOTE | 2017-05-02 16:13 | NUR ---
UP AT BEDSIDE FOR URINAL USE, INFECTION CONTROL RN HERE FOR BLOOD DRAW
--- NOTE | 2017-05-02 16:55 | NUR ---
BATH DONE INDEPENDENTLY AND LINEN CHANGE COMPLETED
--- NOTE | 2017-05-02 17:16 | NUR ---
DINNER TRAY TO BEDSIDE, INDEPENDENT WITH SET UP AND EATING
--- NOTE | 2017-05-02 19:00 | NUR ---
REPORT REC'D, ASSUMED PATIENT CARE. ASSESSMENT COMPLETED. SEE FLOW SHEETS FOR ALL FINDINGS. PT SITTING IN CHAIR, DENIES SOB OR ANY DISCOMFORT AT THIS TIME. SR ON CM WITH HR AT 85. LUNG SOUNDS CLEAR TO ALL LINDSE[place], UNLABORED AND RR EVEN AND REGULAR. LEFT CHEST PIV INTACT INFUSING NS AT KVO VIA PUMP. PPP. CALL LIGHT AND BST IN REACH. WILL CONT TO MONITOR,
--- NOTE | 2017-05-02 23:00 | NUR ---
REASSESSMENT COMPLETED. SEE FLOW SHEETS FOR ALL FINDINGS. PT SITTING UP TO CHAIR, DENIES ANY DISCOMFORT AT THIS TIME. VSS. CALL LIGHT IN REACH. CPOC.
[2017-05-03] VITALS (15 sets, daily range): BP systolic 86–145; BP diastolic 53–96
--- NOTE | 2017-05-03 01:00 | NUR ---
PT LAYING IN BED WATCHING TV, NO NEEDS VOICES. VSS. CALL LIGHT IN REACH. CPOC.
--- NOTE | 2017-05-03 03:00 | NUR ---
REASSESSMENT COMPLETED. SEE FLOW SHEETS FOR ALL FINDINGS.NO ACUTE CHANGES NOTED ON PT'S CONDITION. VSS. NO NEEDS VOICES. CALL LIGHT IN REACH. CPOC
[2017-05-03 04:09] LABS: BASOPHILS 0.3 % (0-2); EOSINOPHILS 4.5 % (0-7); HEMATOCRIT 37.5 % (42.0-54.0); HEMOGLOBIN 12.5 g/dL (13.5-17.5); IMMATURE GRANULOCYTES 0.6 % (0-5); LYMPHOCYTES 32.3 % (15-50); MCH 31.6 pg (26.0-34.0); MCHC 33.3 g/dL (31.0-37.0); MCV 94.7 fL (80.0-100.0); MEAN PLATELET VOLUME 9.2 fL (7.4-10.4); MONOCYTES 22.4 % (2-11); NEUTROPHILS 39.9 % (40-80); RBC 3.96 10x6/uL (4.20-6.10); RDW 13.6 % (11.5-14.5); WBC 7.1 10x3/uL (4.8-10.8)
[2017-05-03 04:10] LABS: PLATELET COUNT 109 10x3/uL (130-400)
[2017-05-03 04:32] LABS: ALBUMIN 3.5 g/dL (3.4-5.0); ALKALINE PHOSPHATASE 120 U/L (46-116); ALT (SGPT) 112 U/L (10-68); BILIRUBIN - TOTAL 0.26 mg/dL (0.2-1.3); CALC OSMOLALITY 282 mosm/kg (275-300); CALCIUM 9.2 mg/dL (8.5-10.1); CARBON DIOXIDE 27.7 mmol/L (21.0-32.0); CHLORIDE - SERUM 103 mmol/L (98-107); CREATINE KINASE 154 UL (21-232); CREATININE - SERUM 0.9 mg/dL (0.6-1.3); GLUCOSE 113 mg/dL (74-106); POTASSIUM - SERUM 4.2 mmol/L (3.5-5.1); PROTEIN - SERUM 7.9 g/dL (6.4-8.2); SODIUM 140 mmol/L (136-145); eGFR NON AFRICAN AMERICAN > 90 mL/min (90-120)
[2017-05-03 04:35] LABS: UREA NITROGEN 22 mg/dL (7-18)
--- NOTE | 2017-05-03 05:00 | NUR ---
PT AWAKE WATCHING TV. NO NEEDS VOICES. VSS. CPOC.
--- NOTE | 2017-05-03 07:00 | NUR ---
REC'D REPORT AND RESUMED CAR, AAO, VSS, O2 VIA RA, DENIES PAIN, AMBULATES UNASSISTED IN ROOM, DISCUSSED FALL PRECAUTIONS, VERBALIZED UNDERSTANDING, CALL LIGHT IN REACH, VVOICES NO NEEDS AT THIS TIME
--- NOTE | 2017-05-03 07:45 | NUR ---
BREAKFAST TRAY TO BEDSIDE, INDEPENDENT WITH SET UP AND EATING
--- NOTE | 2017-05-03 08:53 | NUR ---
Referral faxed yesterday to [facility] for [facility] evaluation. Waiting determination. CM will follow.
--- NOTE | 2017-05-03 09:00 | NUR ---
NO VISITORS AT THIS TIME, RESTING WITH NO SIGN OF DISTRESS
[2017-05-03 10:19] LABS: ANA REFLEX - DIRECT Negative (Negative)
--- NOTE | 2017-05-03 11:00 | NUR ---
ASSESSMENT COMPLETE SEE FLOWSHEET, VSS, NO NEEDS AT THIS TIME
--- NOTE | 2017-05-03 12:05 | NUR ---
LUNCH TRAY TO BEDSIDE, INDEPENDENT WITH SET UP AND EATING
--- NOTE | 2017-05-03 15:00 | NUR ---
NO ACUTE CHANGE FROM PREVIOUS ASSESSMENT, VSS, DENIES PAIN, NO NEEDS AT THIS TIME
--- NOTE | 2017-05-03 15:15 | NUR ---
[facility] with [facility] here to evaluate for [facility] - she states she has initiated precert with insurance company. Waiting determination. Do not anticipate decision before Saturday. CM will follow.
--- NOTE | 2017-05-03 16:15 | NUR ---
I AND O'S COMPLETED WITHOUT DIFFICULTY,
--- NOTE | 2017-05-03 17:52 | NUR ---
DINNER TRAY TO BEDSIDE, INDEPENDENT WITH SET UP AND EATING
--- NOTE | 2017-05-03 19:00 | NUR ---
REPORT RECIEVED, INITIAL ASSESSMENT COMPLETE, PLEASE SEE FLOW SHEETS FOR DETAILS. PT ALERT AND ORIENTS, SITTING UP IN CHAIR. ANSWERS QUESTIONS APPROPRIATELY. DENIES ANY PAIN/NEEDS ATT. BED LOW AND LOCKED. CALL LIGHT IN REACH. VSS ATT, WILL CPOC.
--- NOTE | 2017-05-03 21:00 | NUR ---
VSS, UP AD.ZOYA.. DENIES PAIN/NEEDS ATT. BED LOW AND LOCKED, CALL LIGHT IN REACH. WILL CPOC.
--- NOTE | 2017-05-03 23:00 | NUR ---
REASSESSMENT COMPLETE, PLEASE SEE FLOW SHEETS FOR DETAILS. DENIES PAIN/NEEDS ATT. BED LOW AND LOCKED, CALL LIGHT IN REACH. VSS, WILL CPOC.
[2017-05-04] VITALS (12 sets, daily range): BP systolic 87–133; BP diastolic 49–91
--- NOTE | 2017-05-04 01:00 | NUR ---
SLEEPING, EASILY WAKES. VSS, BED LOW AND LOCKED, CALL LIGHT IN REACH. WILL CPOC.
--- NOTE | 2017-05-04 03:00 | NUR ---
REASSESSMENT COMPLETE, PLEASE SEE FLOW SHEETS FOR DETAILS. DENIES PAIN ATT, ASKED FOR SOMETHING TO EAT. OFFERED PUDDING, THIS WAS ACCEPTED. DENIES ANY OTHER NEEDS ATT. VSS, BED LOW AND LOCKED, CALL LIGHT IN REACH. WILL CPOC.
[2017-05-04 03:31] LABS: BASOPHILS 0.5 % (0-2); EOSINOPHILS 3.2 % (0-7); HEMATOCRIT 35.9 % (42.0-54.0); HEMOGLOBIN 12.2 g/dL (13.5-17.5); IMMATURE GRANULOCYTES 0.8 % (0-5); LYMPHOCYTES 39.3 % (15-50); MCV 94.2 fL (80.0-100.0); MEAN PLATELET VOLUME 9.3 fL (7.4-10.4); MONOCYTES 22.2 % (2-11); PLATELET COUNT 123 10x3/uL (130-400); RBC 3.81 10x6/uL (4.20-6.10); RDW 13.7 % (11.5-14.5); WBC 6.5 10x3/uL (4.8-10.8)
[2017-05-04 03:40] LABS: ALBUMIN 3.2 g/dL (3.4-5.0); ALKALINE PHOSPHATASE 126 U/L (46-116); ALT (SGPT) 89 U/L (10-68); BILIRUBIN - TOTAL 0.28 mg/dL (0.2-1.3); CALC OSMOLALITY 266 mosm/kg (275-300); CALCIUM 8.6 mg/dL (8.5-10.1); CARBON DIOXIDE 26.3 mmol/L (21.0-32.0); CHLORIDE - SERUM 102 mmol/L (98-107); GLUCOSE 120 mg/dL (74-106); POTASSIUM - SERUM 3.6 mmol/L (3.5-5.1); PROTEIN - SERUM 7.1 g/dL (6.4-8.2); SODIUM 131 mmol/L (136-145); UREA NITROGEN 22 mg/dL (7-18); eGFR NON AFRICAN AMERICAN 83 mL/min (90-120)
--- NOTE | 2017-05-04 05:00 | NUR ---
RESTING, DENIES PAIN/NEEDS. BED LOW AND LOCKED, CALL LIGHT IN REACH. WILL CPOC.
--- NOTE | 2017-05-04 05:51 | NUR ---
PIV HAS BEEN SALINE LOCKED ALL NIGHT PER PT REQUEST. FLUSHING BEFORE ABX START REVEALED THE PIV IN HIS LEFT CHEST/SHOULDER WAS NO LONGER PATENT. ATTEMPTED TO START A NEW IV X3, ALL 3 ATTEMPTS UNSUCCESSFUL. INFORMED CHARGE NURSE FOR NEED OF ABX AND IV ACCESS. HE INFORMED ME THAT IT MAY HAVE TO WAIT FOR DAY SHIFT. WILL CPOC ATT.
--- NOTE | 2017-05-04 07:12 | NUR ---
SHIFT ASSESSMENT COMPLETED. PATIENT DENIES ANY NEEDS AT THIS TIME. CALL LIGHT WITHIN REACH, AND BED IN LOW POSTITION.
--- NOTE | 2017-05-04 07:45 | NUR ---
IV RESTARTED IN RIGHT WRIST WITH 20G CATH X1 STICK WITH ASEPTIC TECH USED, GOOD BLOOD RETURN NOTED, AND FLUSHED WELL. ANTIBIOTICS RESTARTED WITH NS.
--- NOTE | 2017-05-04 07:47 | NUR ---
DR. EARL IN TO SEE PATIENT AT THIS TIME.
--- NOTE | 2017-05-04 09:20 | NUR ---
PATIENT SITTING UP ON BEDSIDE WATCHING TV. PATIENT IS TELLING JOKES, AND LAUGHING. CALL LIGHT WITHIN REACH, AND BED IN LOW POSITION.
[2017-05-04 09:47] LABS: APPEARANCE CLOUDY (CLEAR); BILIRUBIN NEGATIVE (NEGATIVE); COLOR YELLOW (YELLOW); GLUCOSE NEGATIVE (NEGATIVE); KETONE NEGATIVE (NEGATIVE); LEUKOCYTE ESTERASE NEGATIVE (NEGATIVE); NITRITE NEGATIVE (NEGATIVE); PROTEIN 1+ mg/dL (NEGATIVE); UROBILINOGEN NORMAL (NORMAL)
--- NOTE | 2017-05-04 09:47 | NUR ---
UP TO BSC WITHOUT ASSIST, HAD LARGE BROWN BM. PATIENT DENIES ANY NEEDS AT THIS TIME. PATIENT IS WANTING A PHONE TO CALL EMERGENCY CONTACT FOR HIM TO COME AND VISIT.
[2017-05-04 09:52] LABS: EPITHELIAL CELLS 0-5 /hpf (0-5)
[2017-05-04 09:53] LABS: BACTERIA FEW /hpf (NONE SEEN); WHITE CELLS - URINE 0-5 /hpf (0-5)
--- NOTE | 2017-05-04 11:00 | NUR ---
PATIENT IS SLEEPING AROUSES FOR V/S THEN RETURNS QUICKLY TO SLEEP. PATIENT DENIES ANY NEEDS AT THIS TIME.
--- NOTE | 2017-05-04 13:00 | NUR ---
PATIENT CONSUMED 95% OF LUNCH. PATIENT IS SLEEPING AROUSES EASILY TO VERBAL STIMULI FOR V/S. PATIENT RETURNS QUICKLY TO SLEEP. NO DISTRESS NOTED AT THIS TIME.
--- NOTE | 2017-05-04 15:00 | NUR ---
NO CHANGES IN CONDITION. PATIENT IS SITTING UP ON BEDSIDE WATCHING TV. V/S WITHIN NORMAL LIMITS. CALL LIGHT WITHIN REACH, AND BED IN LOW POSITION.
--- NOTE | 2017-05-04 16:40 | NUR ---
PATIENT SITTING UP ON BEDSIDE, DENIES ANY NEEDS AT THIS TIME, AND NO CHANGES IN CONDITION. PATIENT IS VERY TALKATIVE ABOUT HOW THE WATER TASTE DUE TO IT NOT BEING FILTERED. CALL LIGHT WITHIN REACHK, AND BED IN LOW POSITION.
--- NOTE | 2017-05-04 18:42 | NUR ---
PATIENT IS UP WALKING AROUND ROOM. LAUGHING AT A SHOW ON TV. PT DENIES ANY NEEDS AT THIS TIME. CALL LIGHT WITHIN REACH, AND BED IN LOW POSITION.
--- NOTE | 2017-05-04 19:00 | NUR ---
REPORT RECIEVED, INITIAL ASSESSMENT COMPLETE, PLEASE SEE FLOW SHEETS FOR DETAILS. DENIES PAIN ATT, REQUESTING FULL SET OF SCRUBS TO WEAR, INFORMED HIM I WOULD GET HIM PANTS AND A NEW GOWN, HE WAS OKAY WITH THIS, ALSO OFFERED SUPPLIES FOR A BATH AND THIS WAS ALSO ACCEPTED. VSS ATT, BED LOW AND LOCKED, CALL LIGHT IN REACH. WILL CPOC.
--- NOTE | 2017-05-04 21:00 | NUR ---
PROVIDED BATHING TOOLD AND FRESH CLOTHING, DENIES ANY OTHER NEEDS ATT. VSS, WILL CPOC.
--- NOTE | 2017-05-04 23:00 | NUR ---
REASSESSMENT COMPLETE, PLEASE SEE FLOW SHEETS FOR DETAILS. GAVE REPORT TO LISA GARCIA. PT DENIES PAIN ATT. ASKED FOR A BIBLE, THIS WAS PROVIDED. NO OTHER NEEDS ATT. BED LOW AND LOCKED, CALL LIGHT IN REACH. WILL CPOC.
--- NOTE | 2017-05-04 23:00 | NUR ---
REPORT RECEIVED. PT SITTING ON SIDE OF BED. VSS. BED IN LOWEST POSITION. DENIES NEEDS AT THIS TIME. CALL LIGHT WITHIN REACH. WILL CONTINUE TO MONITOR.
[2017-05-05] VITALS (8 sets, daily range): BP systolic 101–135; BP diastolic 58–87
--- NOTE | 2017-05-05 01:00 | NUR ---
LAYING IN BED RESTING. VS OBTAINED AND STABLE. DENIES NEEDS AT THIS TIME. CALL LIGHT WITHIN REACH. BED IN LOWEST POSITION. WILL CONTINUE TO MONITOR.
--- NOTE | 2017-05-05 03:00 | NUR ---
LAYING IN BED RESTING. REASSESSMENT COMPLETE PER FLOW SHEET, SEE FOR DETAILS. VSS. VANILLA PUDDING PROVIDED PER REQUEST. DENIES FURTHER NEEDS AT THIS TIME. CALL LIGHT WITHIN REACH. BED IN LOWEST POSITION. WILL CONTINUE TO MONITOR.
--- NOTE | 2017-05-05 05:00 | NUR ---
PATIENT UP WALKING AROUND ROOM. VS OBTAINED AND STABLE. TRASH AND BED LINENS TAKEN OUT OF ROOM PER REQUEST, DENIES FURTHER NEEDS AT THIS TIME. BED IN LOWEST POSITION. CALL LIGHT WITHIN REACH. WILL CONTINUE TO MONITOR.
--- NOTE | 2017-05-05 06:00 | NUR ---
NO VISITORS AT THIS TIME. LAYING IN BED RESTING, DENIES NEEDS AT THIS TIME. BED IN LOWEST POSITION. CALL LIGHT WITHIN REACH. WILL CONTINUE TO MONITOR.
[2017-05-05 06:27] LABS: BASOPHILS 0.7 % (0-2); EOSINOPHILS 3.1 % (0-7); HEMATOCRIT 36.3 % (42.0-54.0); HEMOGLOBIN 12.3 g/dL (13.5-17.5); IMMATURE GRANULOCYTES 0.8 % (0-5); LYMPHOCYTES 37.5 % (15-50); MCHC 33.9 g/dL (31.0-37.0); MCV 94.5 fL (80.0-100.0); MEAN PLATELET VOLUME 9.1 fL (7.4-10.4); MONOCYTES 20.3 % (2-11); NEUTROPHILS 37.6 % (40-80); PLATELET COUNT 136 10x3/uL (130-400); RBC 3.84 10x6/uL (4.20-6.10); RDW 13.6 % (11.5-14.5); WBC 6.1 10x3/uL (4.8-10.8)
[2017-05-05 06:40] LABS: CALC OSMOLALITY 279 mosm/kg (275-300); CALCIUM 8.5 mg/dL (8.5-10.1); CARBON DIOXIDE 28.3 mmol/L (21.0-32.0); CHLORIDE - SERUM 103 mmol/L (98-107); CREATININE - SERUM 0.9 mg/dL (0.6-1.3); GLUCOSE 103 mg/dL (74-106); PHOSPHOROUS 3.6 mg/dL (2.5-4.9); POTASSIUM - SERUM 3.9 mmol/L (3.5-5.1); SODIUM 140 mmol/L (136-145); UREA NITROGEN 15 mg/dL (7-18); eGFR NON AFRICAN AMERICAN > 90 mL/min (90-120)
--- NOTE | 2017-05-05 09:54 | NUR ---
0700- ASSESSMENT COMPLETE PER FLOW SHEET. RESTING QUIETLY IN BED. NO C/O AT THIS TIME. VSS. 0815- BREAKFAST TRAY SERVED, FEEDING SELF. 0910- VSS. NO NEEDS VOICED. WILL CONTINUE TO MONITOR. 0945- DR. EARL AT BEDSIDE, REC'D ORDERS TO TRANSFER TO FLOOR.
--- NOTE | 2017-05-05 10:04 | NUR ---
REPORT CALLED TO JOSE FORDE ON MED II.
--- NOTE | 2017-05-05 11:47 | NUR ---
LUNCH TRAY SERVED, FEEDING SELF. NO NEEDS VOICED. WILL CONTINUE TO MONITOR.
--- NOTE | 2017-05-05 13:40 | NUR ---
TRANSFERRED VIA WHEELCHAIR TO ROOM 9.
--- NOTE | 2017-05-05 13:55 | NUR ---
RECEIVED PT TO ROOM 2119 ALERT OX3. AMBULATING IN ROOM. ORIENTED TO ROOM AND CALL LIGHT.
--- NOTE | 2017-05-05 18:32 | NUR ---
REQUESTING A SHOWER, ANTIBIOTIC INFUSING AT THIS TIME. EXPLAINED WHEN INFUSION COMPLETE, MAY UNHOOK FOR SHOWER.
--- NOTE | 2017-05-05 20:00 | NUR ---
AGITATED. WANTING IV SALINE LOCKED NOW SO HE CAN SHOWER. MAKING REFERENCES TO PAPERWORK THAT HE HAD TO WAIT ON BUT WOULD NOT EXPAND ON THIS WITH NURSE. INFRASTRUCTURE MANAGER ASSISTED HIM TO READY SELF FOR SHOWER. PT IS AMBULATORY AND PACING IN ROOM. SEE ASSESSMENT. MONITOR AND CPOC.
--- NOTE | 2017-05-05 22:38 | NUR ---
PT UP AND ABOUT IN HIS ROOM. HS MEDS GIVEN. SALINE FLUSH TO PIV IN RFA. WILL LEAVE OFF KVO FLUIDS FOR THE NIGHT AT PT REQUEST SO HE CAN SLEEP. MONITOR AND CPOC.
--- NOTE | 2017-05-06 05:43 | NUR ---
RESTING. ROUSES UP EASILY. STARTED KVO FLUIDS AND IV ROCEPIN NOW UP AND INFUSING. AM PROTONIX GIVEN. PT VOICING NO OTHER NEEDS. MONITOR AND CPOC.
[2017-05-06 08:00] VITALS: BP 91/43
--- NOTE | 2017-05-06 09:57 | NUR ---
UP AMBULATING IN ROOM. GAIT STEADY.
--- NOTE | 2017-05-06 11:05 | NUR ---
Patient Name: MARCY BLANC Encounter No: [id number] : 1965 Primary Insurance: [employer] Anticipated DC Date: 05-06-2017 Planned Disposition: [facility] Acute Care Facility External Planned Provider: JE MOONEY DCP follow-up note: CM RECEIVED REPORT FROM RN JACQUELINE BEAVERS. CM CALLED AND SPOKE TO CHRISTIANA OF [facility]. [phone], WHO REPORTS SHE IS WORKING UP PT FOR LTACH ADMIT, EVERYTHING LOOKS OK EXCEPT THAT PT NEEDS INSURANCE APPROVAL. CHRISTIANA HAS NOT CONTACTED PT'S INSURANCE COMPANY AND ASKED THAT CM CALL. JACQUELINE CALLED [employer], ; CM PROVIDED NILSA WITH BASIC REFERRAL INFORMATION, NILSA WILL CALL CHRISTIANA AT [facility]. CM FAXED UPDATE TO CHRISTIANA AT [facility] AT [phone]. CM SPOKE TO PT IN ROOM WHO REPORTS THAT HIS CONFUSION IS MUCH BETTER AND STATES HE ONLY HAS PARTIAL MEMORY OF HIS HOSPITAL STAY. CM DISCUSSED LTACH AT [facility]. PT REPORTS AGREEMENT WITH PLAN. PT REPORTS THAT HE IS TECHNICALLY HOMELESS AND PLANS TO DISCHARGE TO HIS FEMALE FRIENDS APARTMENT IN [place] IT IS CLOSE TO PHARMACY, [employer], [employer] AND [employer]. PT REPORTS HIS EMERGENCY CONTACT DANGELO AT [phone]. CM WAITING ADMISSION DETERMINATION FROM [facility] LTACH. Matt Santos, CASE MANAGEMENT
[2017-05-06 12:46] VITALS: BP 114/76
[2017-05-06] MEDS ORDERED: ROCEPHIN 2 GM/D52 G1 IV (14:21)
[2017-05-06] MEDS ORDERED: METOPROLOL TART50 MG PO (14:22)
[2017-05-06] MEDS ORDERED: PROTONIX40 MG PO (14:22)
[2017-05-06] MEDS ORDERED: GEODON20 MG PO (14:22)
[2017-05-06] MEDS ORDERED: LISINOPRIL10 MG PO (14:22)
[2017-05-06 15:17] LABS: Q FEVER PHASE I AB Negative (Neg:<1:16); Q FEVER PHASE II AB Negative (Neg:<1:16)
--- NOTE | 2017-05-06 16:17 | NUR ---
REPORT CALLED TO [facility]. LEAVING WITH EMS BY STRETCHER.
[2017-05-07 14:18] LABS: BRUCELLA IGG Positive (Negative); BRUCELLA IGM Negative (Negative)
== END 2017-05-06 16:18 | disposition short-term general hospital (02) | DRG 306 ==
LOC: D.ER 23:19 → D.ICU 04-26 01:10 → D.M2 05-05 13:54
PROVIDERS: Emergency Medicine; Family Medicine; Student in an Organized Health Care Education/Training Program; ADMIT Family Medicine
PROC: 0T9B70Z Drainage of Bladder with Drainage Device, Via Natural or Artificial Opening (ICD-10-PCS; principal; 2017-04-26)
PROC: 009U3ZZ Drainage of Spinal Canal, Percutaneous Approach (ICD-10-PCS; 2017-04-26)
DX: I01.1 Acute rheumatic endocarditis (principal); G93.41 Metabolic encephalopathy; G93.49 Other encephalopathy; K92.2 Gastrointestinal hemorrhage, unspecified; E87.1 Hypo-osmolality and hyponatremia; M62.82 Rhabdomyolysis; F10.239 Alcohol dependence with withdrawal, unspecified; I10 Essential (primary) hypertension; K21.9 Gastro-esophageal reflux disease without esophagitis; K72.90 Hepatic failure, unspecified without coma; B19.20 Unspecified viral hepatitis C without hepatic coma; E87.6 Hypokalemia; R59.9 Enlarged lymph nodes, unspecified; D69.6 Thrombocytopenia, unspecified; Z87.891 Personal history of nicotine dependence; Z59.0 Homelessness; R41.0 Disorientation, unspecified; R31.0 Gross hematuria